=== PATIENT | female | born 1960 | race Caucasian/White ===

== ENCOUNTER → 2020-02-27 | Outpatient (CLI) | payer OTHER | LOC: MAMO 14:30 | DX: Z12.31 Encounter for screening mammogram for malignant neoplasm of breast (principal); Z90.710 Acquired absence of both cervix and uterus | CPT/HCPCS: 77063; 77067 ==

== ENCOUNTER → 2020-06-29 | Outpatient (CLI) | payer OTHER | LOC: US 13:42 | DX: E04.9 Nontoxic goiter, unspecified (principal) | CPT/HCPCS: 76536 ==

== ENCOUNTER → 2021-08-26 | Outpatient (CLI) | payer OTHER | LOC: EXRD 13:00 | DX: E04.2 Nontoxic multinodular goiter (principal); Z79.899 Other long term (current) drug therapy | CPT/HCPCS: 76536 ==

== ENCOUNTER → 2021-08-28 | Outpatient (CLI) | payer OTHER | LOC: LAB 11:36 | DX: E04.2 Nontoxic multinodular goiter (principal); Z79.899 Other long term (current) drug therapy | CPT/HCPCS: 36415; 84439; 84443 ==